=== PATIENT | male | born 1930 | race Caucasian/White ===

== ENCOUNTER 2018-05-21 10:59 | Outpatient (CLI) | payer MEDICARE ==
[~2018-05-21] VITALS: Ht 170.2 cm; Wt 62.3 kg
--- NOTE | ~2018-05-21 | HEMODYNAMI ---
PATIENT:MYRNA HARDY MEDICAL RECORD: [id number] : 32 LOCATION:[facility] ADMISSION DATE: 05/21/18 Generatedon:05/21/201813:49 Patient name: MYRNA HARDY Patient #: [id number] SSN: : 1930 Date of study: 05/21/2018 Page: Of Hemodynamic Procedure Report Patient Data Patient Demographics Procedure consent was obtained First Name: MYRNA Gender: Male Last Name: HAYLEY : 1930 Patient #: [id number] Age: 87 year(s) Race: Unknown Additional ID: [id number] Contact details [address]: [address] [place] [address] State: [place] City: [place] Zip code: [address] Past Medical History Allergies: No known allergies Admission Admission Data Admission Date: 05/21/2018 Admission Time: 10:59 Height (in.): 66 BSA: 1.7 (m2) Height (cm.): 167.64 BMI: 22.11 (kg/m2) Weight (lbs.): 137 Weight (kg.): 62.14 Lab Results Lab Result Date: 05/21/2018 Lab Result Time: 0:00 Biochemistry Name Units Result Min Max BUN mg/dl 13 --(--*-)-- 7 18 Creatinine mg/dl 1.1 --(--*-)-- 0.6 1.3 CBC Name Units Result Min Max Hemoglobin g/dl 14.3 --(*---)-- 13.5 17.5 Procedure Procedure Types Cath Procedure Diagnostic Procedure LHC LHC w/Coronaries w/Grafts PCI Procedure Coronary Stent Coronary Stent Initial Procedure Description Procedure Date Procedure Date: 05/21/2018 Procedure Start Time: 13:02 Procedure End Time: 13:47 Procedure Staff Name Function Yousuf Hanna MD Performing Physician Bob Quinn RT Monitor Berkley Garcia RT Scrub Aleta Rutherford RN Nurse Procedure Data Cath Procedure Fluoroscopy Diagnostic fluoroscopy Total fluoroscopy Time: time: 15.6 min 15.6 min Diagnostic fluoroscopy Total fluoroscopy dose: 620 dose: 620 mGy mGy Contrast Material Contrast Material Type Amount (ml) Isovue 300 168 Entry Location Entry Primary Successful Side Size Upsize Upsize Entry Closure Succes sful Closure Location (Fr) 1 (Fr) 2 (Fr) Remarks Device Remarks Femoral Right 5 Fr 6 Fr Exoseal artery Short Estimated blood loss: 10 ml Diagnostic catheters Device Type Used For End Catheter Placement MULTIPACK JL 4.0 5Fr Procedure catheter DIAGNOSTIC AR MOD 5Fr Procedure Catheter (340656S) DIAGNOSTIC LCB 5Fr Procedure catheter (362756D) DIAGNOSTIC AR2 MOD 5 Fr Procedure catheter (568808U) DIAGNOSTIC IM 5Fr Procedure catheter (364737B) MULTIPACK Pigtail 5 Fr Procedure catheter DIAGNOSTIC 6Fr JR 4.0 Procedure catheter ([id number]) Procedure Complications No complications Procedure Medications Medication Administration Route Dosage 0.9% NaCl I.V. 100 ml/hr Oxygen etCO2 Nasal cannula 2 l/min Lidocaine 2% added to field 20 Heparin Flush Bag added to field 2 bags (1000units/500ml NS) Versed I.V. 2 mg Fentanyl I.V. 50 mcg Versed I.V. 2 mg Fentanyl I.V. 25 mcg Fentanyl I.V. 25 mcg Heparin Bolus I.V. 6200 units Versed I.V. 0.5 mg Plavix P.O. 600 mg Hemodynamics Rest BSA: 1.7 (m2) HGB: 14.3 (g/dl) O2 Consumption: Estimated: 201.7 (ml/min) O2 Cons umption indexed: Estimated:118.65 (ml/min/m) Heart Rate: 84 (bpm) Pressure Samples Time Site Value (mmHg) Purpose Heart Use Rate(bpm) 13:18 LV 96/-12,7 Snapshot 79 13:19 AO 96/48(69) Pullback 79 13:19 LV 88/10,5 Pullback 79 Gradients Valve Time Site 1 Site 2 Mean SEP/DFP Peak To Heart Use (mmHg) (sec/min) Peak Rate (mmHg) (bpm) Aortic 13:19 LV AO 0 6 0 79 88/10,5 96/48(69) Calculations Valve P-P Mean Valve Index Valve Source Name Gradient Area Flow (cm2) Aortic 0 0 0 0 Snapshots Pre Cath Intra NCS Post Cath Vital Signs Time Heart Resp SPO2 etCO2 NIBP (mmHg) Rhythm Pain Sedation Rate (ipm) (%) (mmHg) Status Level (bpm) 12:43:25 92 19 99 15.2 149/93(116) NSR 0 (11) 10(A) , No pain 12:47:39 87 18 99 25 124/69(90) NSR 0 (11) 10(A) , No pain 12:51:49 85 16 99 26.3 94/60(71) NSR 0 (11) 10(A) , No pain 12:55:53 84 15 98 27.3 92/59(74) NSR 0 (11) 10(A) , No pain 12:59:57 82 17 98 25 89/60(70) NSR 0 (11) 10(A) , No pain 13:03:58 79 14 98 27 96/66(80) NSR 0 (11) 9(A) , No pain 13:08:02 81 15 98 26.7 110/64(83) NSR 0 (11) 9(A) , No pain 13:12:10 78 14 99 24.5 104/68(88) NSR 0 (11) 9(A) , No pain 13:16:16 79 13 100 26 105/64(87) NSR 0 (11) 10(A) , No pain 13:20:24 81 12 99 27 93/64(80) NSR 0 (11) 9(A) , No pain 13:24:25 78 12 99 28.4 109/65(93) NSR 0 (11) 9(A) , No pain 13:28:35 79 13 100 27 103/63(89) NSR 0 (11) 10(A) , No pain 13:32:39 78 12 100 26.7 111/69(94) NSR 0 (11) 10(A) , No pain 13:36:47 81 12 100 29.8 120/68(93) NSR 0 (11) 9(A) , No pain 13:40:54 80 12 100 27.6 121/76(106) NSR 0 (11) 9(A) , No pain 13:45:00 87 14 100 25.1 139/87(115) NSR 0 (11) 10(A) , No pain Medications Time Medication Route Dose Verified Delivered Reason Notes Effectiveness by by 12:52:13 Versed I.V. 2 mg Yousuf Aleta for sedation Jacques Rutherford RN 12:52:20 Fentanyl I.V. 50 Yousuf Aleta for sedation mcg Jacques Rutherford RN 12:53:47 0.9% NaCl I.V. 100 Yousuf Aleta used for ml/hr Jacques Rutherford industrial fabric cutter 12:53:56 Oxygen etCO2 2 Yousuf Aleta used for Nasal l/min Jacques Rutherford procedure cannula RN 12:54:01 Lidocaine 2% added 20ml Yousuf Yousuf for local to vial Jacques Hanna MD anesthetic field 12:54:06 Heparin Flush added 2 Yousuf Aleta used for Bag to bags Jacques Rutherford procedure (1000units/500ml field RN NS) 12:59:10 Versed I.V. 2 mg Yousuf Aleta for sedation Jacques Rutherford RN 12:59:16 Fentanyl I.V. 25 Yousuf Aleta for sedation mcg Jacques Rutherford RN 13:16:34 Fentanyl I.V. 25 Yousuf Aleta for sedation mcg Jacques Rutherford RN 13:22:31 Heparin Bolus I.V. 6200 Yousuf Aleta for verif ied units Jacques Rutherford anticoagulation with Dr. CRISTOPHER Hanna 13:33:54 Versed I.V. 0.5 Yousuf Aleta for sedation mg Jacques Rutherford RN 13:45:36 Plavix P.O. 600 Yousuf Aleta for mg Jacques Rutherford antiplatelet RN therapy Procedure Log Time Note 12:25:39 Signed procedure consent form obtained from patient. 12:25:40 Diagnostic Cath status Elective 12:25:41 Time tracking: Regular hours (M-F 7:00 - 5:00) 12:25:47 Plan of Care:Hemodynamics will remain stable., Cardiac rhythm will remain stable., Comfort level will be maintained., Respiratory function will remain adequate., Patient/ family verbilizes understanding of procedure., Procedure tolerated without complication., Recovers from procedure without complications.. 12:25:57 H&P Date Dictated: 05/15/2018 Within 30 days and on chart., H&P Addendum completed by physician on day of procedure. (MUST COMPLETE FOR ALL OUTPATIENTS). 12:26:12 Patient Height : 66 inches 12:26:15 Patient Weight : 137 lbs 12:26:25 Patient allergic to No known allergies 12:27:10 Lab Result : BUN 13 mg/dl 12:27:10 Lab Result : Hemoglobin 14.3 g/dl 12:27:10 Lab Result : Creatinine 1.1 mg/dl 12:28:31 Aleta Rutherford RN sent for patient. Start room use. 12:35:09 Patient received from Pre/Post Procedure Room to CCL 1 Alert and oriented. Tansferred to table in Supine position. 12:35:12 Warm blankets applied, and danial hugger turned on for patient comfort. 12:35:12 Correct patient and procedure confirmed by team. 12:35:13 ECG and BP/O2 sat monitors applied to patient. 12:42:22 Vital chart was started 12:49:26 Baseline sample Acquired. 12:49:39 Rhythm: sinus rhythm 12:49:40 Full Disclosure recording started 12:49:44 Pre-procedure instructions explained to patient. 12:49:44 Pre-op teaching completed and patient verbalized understanding. 12:49:45 Family in waiting room. 12:49:47 Patient NPO since Breakfast. 12:49:49 Is the patient allergic to Iodine/contrast media? No. 12:50:08 Is patient on blood thinner?No 12:50:11 Patient diabetic? No. 12:50:13 Previous problem with sedation/anesthesia? No ? 12:50:14 Snore? Yes 12:50:15 Sleep apnea? No 12:50:16 Deviated septum? No 12:50:16 Opens mouth fully? Yes 12:50:17 Sticks out tongue? Yes 12:50:18 Airway obstruction? No ? 12:50:28 Dentures? Yes Top in, Bottom out 12:50:32 Pre procedure: right dorsailis pedis pulse Doppler 12:50:34 Patient pain scale 0/10 ?. 12:50:40 IV patent on arrival in left wrist with 0.9% NaCl at [facility]. 12:50:42 Lab results completed and on chart. 12:50:46 Right groin area was prepped with chlora-prep and draped in sterile fashion 12:50:47 Alarms reviewed by R. N. 12:50:47 Sharps counted by scrub and verified by R.N. 12:50:49 Use device set Femoral Dx 12:50:50 ACIST Syringe (67796) opened to sterile field. 12:50:50 Bag Decanter (2002S) opened to sterile field. 12:50:51 Medline Cath Pack ([id number]) opened to sterile field. 12:50:51 ACIST Manifold (40439) opened to sterile field. 12:50:52 ACIST Hand Control (60659) opened to sterile field. 12:50:53 Tegaderm 4 x 4 (1626W) opened to sterile field. 12:50:56 DIAGNOSTIC Multipack 5Fr catheter set (BI4757) opened to sterile field. 12:50:57 DIAGNOSTIC WIRE .035 260cm J wire (839009) opened to sterile field. 12:51:14 SHEATH 5FR [place] (BTH917) opened to sterile field. 12:51:23 Physician arrived 12:51:23 --------ALL STOP TIME OUT------ 12:51:24 Final Timeout: patient, procedure, and site verified with staff and physician. All members of the team are in agreement. 12:51:25 Right groin site verified by team. 12:51:28 Physical assessment completed. ASA score P 2 - A patient with mild systemic disease as per Yousuf Hanna MD. 12:51:31 Sedation plan: IV Moderate Sedation Medication:Versed, Fentanyl 12:52:13 Versed 2 mg I.V. was administered by Aleta Rutherford RN; for sedation; 12:52:20 Fentanyl 50 mcg I.V. was administered by Aleta Rutherford RN; for sedation; 12:53:47 0.9% NaCl 100 ml/hr I.V. was administered by Aleta Rutherford RN; used for procedure; 12:53:56 Oxygen 2 l/min etCO2 Nasal cannula was administered by Aleta Rutherford RN; used for procedure; 12:54:01 Lidocaine 2% 20ml vial added to field was administered by Yousuf Hanna MD; for local anesthetic; 12:54:06 Heparin Flush Bag (1000units/500ml NS) 2 bags added to field was administered by Aleta Rutherford RN; used for procedure; 12:59:10 Versed 2 mg I.V. was administered by Aleta Rutherford RN; for sedation; 12:59:16 Fentanyl 25 mcg I.V. was administered by Aleta Rutherford RN; for sedation; 13:02:23 Procedure started. 13:02:26 Local anesthetic to right femoral artery with Lidocaine 2% by Yousuf Hanna MD.INITIAL ACCESS ONLY 13:02:37 A 5 Fr sheath was inserted into the Right Femoral artery 13:03:06 A MULTIPACK JL 4.0 5Fr catheter was advanced over the wire and used for Procedure. 13:03:51 LCA angiography performed. 13:04:42 Catheter exchanged over wire. 13:05:34 A DIAGNOSTIC AR MOD 5Fr Catheter (961952W) was advanced over the wire and used for Procedure. 13:06:18 RCA angiography performed. 13:08:48 Catheter exchanged over wire. 13:09:22 A DIAGNOSTIC LCB 5Fr catheter (381368U) was advanced over the wire and used for Procedure. 13:12:17 Catheter exchanged over wire. 13:12:22 A DIAGNOSTIC AR2 MOD 5 Fr catheter (912332S) was advanced over the wire and used for Procedure. 13:12:37 SVG to Diag/ angiography performed. 13:15:27 Catheter exchanged over wire. 13:15:30 A DIAGNOSTIC IM 5Fr catheter (898889L) was advanced over the wire and used for Procedure. 13:16:34 Fentanyl 25 mcg I.V. was administered by Aleta Rutherford RN; for sedation; 13:17:20 MCINTOSH to LAD angiography performed. 13:18:08 Catheter exchanged over wire. 13:18:16 A MULTIPACK Pigtail 5 Fr catheter was advanced over the wire and used for Procedure. 13:19:02 LV gram done using LEONE 13:19:04 Injector settings: Ml/sec: 10, Volume: 20, 13:19:06 LV hemodynamics recorded. 13:19:12 EF : 60 % 13:19:49 Catheter removed. 13:19:59 SHEATH 6FR [place] (KFW248) opened to sterile field. 13:20:00 INFLATOR Merit BasixCompak (XG5716) opened to sterile field. 13:20:11 BMW 300cm [place] 2 J wire ([id number]) opened to sterile field. 13:20:25 TUBING High Pressure Extension Tubing (Jacques) (GH0796L) opened to sterile field. 13:20:34 Sheath upsized to a 6 Fr Short. 13:22:17 A DIAGNOSTIC 6Fr JR 4.0 catheter (294617W) was advanced over the wire and used for Procedure. 13:22:29 6 Fr JR 4 guide catheter was inserted over the wire 13:22:31 Heparin Bolus 6200 units I.V. was administered by Aleta Rutherford RN; for anticoagulation; verified with Dr. Hanna 13:23:45 BMW wire advanced. 13:23:47 Wire advanced across lesion. 13:33:54 Versed 0.5 mg I.V. was administered by Aleta Rutherford RN; for sedation; 13:34:31 Place stent Inflation Number: 1 A INTEGRITY OTW 3.5 X 18 stent ([id number]) was prepped and advanced across the Prox RCA. The stent was deployed at 14 ANDRES for 0:10 (min:sec). 13:38:18 Stent catheter was removed intact over wire. 13:41:52 Place stent Inflation Number: 1 A INTEGRITY OTW 3.5 X 22 stent ([id number]) was prepped and advanced across the Mid RCA. The stent was deployed at 13 ANDRES for 0:10 (min:sec). 13:42:02 Stent catheter was removed intact over wire. 13:42:03 Wire removed. 13:42:04 Guide catheter removed. 13:42:11 EXOSEAL 6Fr (EX600) opened to sterile field. 13:42:18 Sheath removed intact; hemostasis achieved with Exoseal to the Right Femoral artery. 13:42:22 Procedure ended.(Physican Out) 13:43:41 Fluoroscopy time 15.60 minutes. 13:43:45 Fluoroscopy dose: 620 mGy 13:43:45 Flurop Dose total: 620 13:43:49 Contrast amount:Isovue 300 168ml. 13:43:51 Sharps counted by scrub and verified by R.N. 13:43:52 Insertion/operative site no bleeding no hematoma. 13:43:55 Post-op/insertion site Right Femoral artery dressed using a 4 x 4 and Tegaderm. 13:43:59 Post right femoral artery:stable, soft, clean and dry 13:44:00 Post Procedure Pulses reassessed and unchanged 13:44:02 Post-procedure physical assessment completed. ASA score P 2 - A patient with mild systemic disease as per Yousuf Hanna MD. 13:44:04 Post procedure rhythm: unchanged. 13:44:07 Estimated blood loss: 10 ml 13:44:09 Post procedure instruction explained to patient.Patient verbalizes understanding. 13:44:09 Patient needs reinforcement of post procedure teaching. 13:44:39 Procedure type changed to Cath procedure, Diagnostic procedure, LHC, LHC w/Coronaries w/Grafts, PCI procedure, Coronary Stent, Coronary Stent Initial 13:45:36 Plavix 600 mg P.O. was administered by Aleta Rutherford RN; for antiplatelet therapy; 13:46:58 Procedure and supply charges have been captured, reviewed, submitted and are correct. 13:47:00 Procedure Complication : No complications 13:47:02 Vital chart was stopped 13:47:02 See physician's report for complete and final results. 13:47:06 Report given to Pre/Post Procedure Room. 13:47:09 Patient transfered to Pre/Post Procedure Room with Stretcher. 13:47:10 Procedure ended. 13:47:10 Full Disclosure recording stopped 13:47:14 End room use (Document Last) Intervention Summary Intervention Notes Time ActionType Lesion and Equipment Action# Pressure Duration Attributes Used 13:34:31 Place stent Prox RCA INTEGRITY 1 14 00:10 OTW 3.5 X 18 stent ([id number]) 13:41:52 Place stent Mid RCA INTEGRITY 1 13 00:10 OTW 3.5 X 22 stent ([id number]) Device Usage Item Name Manufacture Quantity Catalog Hospital Part Current Minimal L ot# / Number Charge Number Stock Stock Serial# Code ACIST Acist 1 28628 773447 693155 889045 20 Syringe Medical (68408) Systems Inc Bag Microtek 1 105513 11639 162506 5 Decanter Medical Inc. () Medline Medline 1 [id number] 988132 19306 170543 5 Cath Pack ([id number]) ACIST Acist 1 48402 875338 922339 018308 5 Manifold Medical (33692) Systems Inc ACIST Hand Acist 1 78473 352107 304313 712027 5 Control Medical (27427) Systems Inc Tegaderm 4 3M 1 1626W 691477 133341 063959 5 x 4 (1626W) DIAGNOSTIC Cardinal 1 FH6434 675700 91237 306774 30 Multipack Health 5Fr catheter set (LM5885) DIAGNOSTIC [facility] Jorge 1 897073 586094 925299 584414 30 WIRE .035 260cm J wire (266195) SHEATH 5FR Terumo 1 OCR925 986791 716859 218863 40 [place] (UTJ180) MULTIPACK Cardinal 1 198035 5 JL 4.0 5Fr Health catheter DIAGNOSTIC Cardinal 1 637519N 625161 067970 737770 15 AR MOD 5Fr Health Catheter (178347I) DIAGNOSTIC Cardinal 1 919914H 349505 834480 691025 5 LCB 5Fr Health catheter (724037I) DIAGNOSTIC Cardinal 1 169349U 621475 122271 331894 20 AR2 MOD 5 Health Fr catheter (887994B) DIAGNOSTIC Cardinal 1 050386R 901906 272146 323568 5 IM 5Fr Health catheter (238864L) MULTIPACK Cardinal 1 841300 5 Pigtail 5 Health Fr catheter SHEATH 6FR Terumo 1 JAJ301 405164 954747 980752 40 [place] (BCO989) INFLATOR Merit 1 MN2246 939232 725999 195332 15 [facility] Medical BasixCompak (XQ6020) BMW 300cm Simpson 1 [id number] 428565 670316 362355 5 [place] 2 Vascular J wire (8352630K) TUBING High Merit 1 [id number] 442738 22230 724331 10 Pressure Medical Extension Tubing (Hanna) (YA0378D) DIAGNOSTIC Cardinal 1 578275N 192955 888682 440633 5 6Fr JR 4.0 Health catheter (751688D) INTEGRITY Medtronic 1 [id number] 405444 416607 1 0 [id number] OTW 3.5 X 18 stent ([id number]) INTEGRITY Medtronic 1 [id number] 776403 605799 1 0 [id number] OTW 3.5 X 22 stent ([id number]) EXOSEAL 6Fr Cardinal 1 EX600 175975 407060 542419 10 (EX600) Health Signature Audit [place] Stage Time Signature Unsigned Intra-Procedure 05/21/2018 Bob Quinn 1:49:12 PM RT(R) Signatures Monitor : Bob Quinn RT Signature : Date : Time : [address] [place] [address]
[~2018-05-21 10:59] MED LIST: ASPIRIN325 MG PO; CARAFATE1 G PO; CORDARONE200 MG PO; DULCOLAX10 MG/SUPP RC; DULCOLAX5 MG PO; DUONEB 2.5-0.5 M3 ML UPD; ELAVIL10 MG PO; LASIX INJ40 MG/4 ML PO; LIPITOR10 MG PO; LOPRESSOR25 MG PO; LOVENOX60 MG/0.6 SQ; MEGACE40 MG PO; MICRO-K10 MEQ PO; MIRALAX17 GM PO; MOTRIN400 MG PO; MUCINEX D1 TAB.SR . PO; MUCINEX DM ER1 EAC1 PO; MUCINEX600 MG PO; NARCAN INJ0.4 MG/ML IV; NITRO-BID60 GM TP; NITROSTAT0.4 MG SL; NORCO 5/325 TAB1 TA1 PO; NYSTATIN ORAL SU5 ML PO; ONDANSETRON4 MG/2 M3 IV; PERFOROMIS20 MCG/21 NEB; PROTONIX40 MG PO; PULMICORT0.5 MG/21 INH; SALINE FLUSH10 ML IV; SENOKOT-S TABLE1 TAB PO; XARELTO10 MG PO
[2018-05-21] MEDS ORDERED: PEPCID AC20 MG PO (11:28)
[2018-05-21] MEDS ORDERED: BAYER CHEWABLE81 MG PO (11:29)
[2018-05-21 11:44] VITALS: BP 125/95; Ht 170.2 cm; Wt 62.3 kg
[2018-05-21 11:49] LABS: BASOPHILS 0.5 % (0-2); EOSINOPHILS 2.9 % (0-7); HEMATOCRIT 43.5 % (42.0-54.0); HEMOGLOBIN 14.3 g/dL (13.5-17.5); IMMATURE GRANULOCYTES 0.2 % (0-5); LYMPHOCYTES 19.4 % (15-50); MCH 28.9 pg (26.0-34.0); MCHC 32.9 g/dL (31.0-37.0); MCV 88.1 fL (80.0-100.0); MEAN PLATELET VOLUME 9.6 fL (7.4-10.4); MONOCYTES 6.7 % (2-11); NEUTROPHILS 70.3 % (40-80); RBC 4.94 10x6/uL (4.20-6.10); RDW 15.1 % (11.5-14.5); WBC 10.8 10x3/uL (4.8-10.8)
[2018-05-21 11:54] LABS: PLATELET COUNT 279 10x3/uL (130-400)
[2018-05-21 11:59] LABS: CALCIUM 9.5 mg/dL (8.5-10.1); CARBON DIOXIDE 25.2 mmol/L (21.0-32.0); CREATININE - SERUM 1.1 mg/dL (0.6-1.3); POTASSIUM - SERUM 4.2 mmol/L (3.5-5.1)
[2018-05-21] MEDS ORDERED: PLAVIX75 MG PO (14:04)
== END 2018-05-21 18:00 | disposition home or self-care (01) ==
LOC: D.CATH 10:59
PROVIDERS: Internal Medicine Cardiovascular Disease
DX: I25.119 Atherosclerotic heart disease of native coronary artery with unspecified angina pectoris (principal); Z01.812 Encounter for preprocedural laboratory examination; Z95.1 Presence of aortocoronary bypass graft

== ENCOUNTER → 2019-01-02 11:02 | Outpatient (CLI) | payer MEDICARE ==
[2018-05-21 11:44] VITALS: BMI 21.5
[~2019-01-02 11:02] MED LIST changes: +BAYER CHEWABLE81 MG PO; +PEPCID AC20 MG PO; +PLAVIX75 MG PO
== END | disposition home or self-care (01) ==
LOC: D.HCCARDIO 11:00
PROVIDERS: ATTEND Internal Medicine Cardiovascular Disease
DX: I25.10 Atherosclerotic heart disease of native coronary artery without angina pectoris (principal)

== ENCOUNTER → 2019-09-16 08:39 | Outpatient (CLI) | payer MEDICARE ==
[2018-05-21 11:44] VITALS: BMI 21.5
== END | disposition home or self-care (01) ==
LOC: D.HCCARDIO 08:39
PROVIDERS: ATTEND Internal Medicine Cardiovascular Disease
DX: I25.10 Atherosclerotic heart disease of native coronary artery without angina pectoris (principal)